=== PATIENT | male | born 1960 | race Caucasian/White ===

== ENCOUNTER 2020-07-07 12:16 | Emergency (ER) | payer BC ==
--- OUTSIDE RECORDS SUMMARY | 2020-07-07 12:19 | XMS REPORT | Continuity of Care Document ---
:1960 Author Organization [facility] t Address 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 Family History Family Member Diagnosis Comments Start Date Stop Date Source Sibling Family history of [facility] [place] malignant neoplasm of Phy sicians urinary bladder Sibling Family history of [facility] [place] valvular heart Physicians disease Mother Family history of [facility] [place] congestive heart Physicia ns failure Father Family history of [facility] [place] colon cancer Physicians Social History Smoking Status Start Date Stop Date Source Never smoker [facility] Physicians Medications Ordered Filled Start Stop Current Ordering Indication Dosage Frequency Signature Comments Components Source Medication Medication Date Date Medication? Clinician (SIG) Name Name Lisinopril Lisinopril Yes Uni vers TABS TABS ity of [place] [facility] ans Pravastatin Pravastatin Yes U nivers Sodium TABS Sodium TABS i ty of [place] [facility] ans Aspirin Aspirin Yes Univers TABS TABS ity of [place] Physici ans Rizatriptan Rizatriptan Yes U nivers Benzoate Benzoate ity of TABS TABS [place] [facility] Ciprofloxac Ciprofloxac Yes U nivers in 500 MG in 500 MG ity o f TABS TABS [place] [facility] Dexilant 60 Dexilant 60 Yes U nivers MG Oral MG Oral ity of Capsule Capsule [place] Delayed Delayed Physici Release Release ans Vital Signs Vital Name Observation Time Observation Value Comments Source BP Systolic 2017-10-15 130 mm[Hg] Location: [facility] 10:46:00 Position: [place] [facility] Sitting BP Diastolic 2017-10-15 98 mm[Hg] Location: [facility] 10:46:00 Position: [place] [facility] Sitting Height 2017-10-15 70 [in_us] [facility] 10:46:00 [place] [facility] Weight 2017-10-15 195 [lb_av] [facility] 10:46:00 [place] [facility] Body Mass Index 2017-10-15 27.98 kg/m2 University o f Calculated 10:46:00 [place] [facility] Heart Rate 2017-10-15 74 /min Quality: [facility] 10:46:00 Regular [place] [facility] s Procedures Procedure Date / Time Performed Performing Clinician Luke valenzuela History of kidney [facility] surgery Physicians History of sinus [facility] ex surgery Physicians Encounters Start End Encounter Admission Attending Care Care Encounter Source Date/Time Date/Time Type Type Clinicians Facility Department ID 2017-10-15 2017-10-15 KATARINA Haines [facility] [id number] Univers 09:45:00 09:45:00 t; Luis Armando REY Ortho [facility] i ty [facility] Jose REY M.D. Medical Physi ci [place] ans 2017-08-27 2017-08-27 KATARINA Haines [facility] [id number] Univers 10:30:00 10:30:00 t; Luis Armando REY ity Jose Ryder M.D. Physi ci ans Results This patient has no known results.
[2020-07-07] MEDS ORDERED: LIDOCAINE 1% MPF 5 ML VIAL ONE (13:01)
[2020-07-07] MEDS ORDERED: HYDROCODONE/APAP 5/325 MG TAB ONE (13:02)
[2020-07-07] MEDS ORDERED: TETANUS & DIPHTHERIA TOX,ADULT 0.5 ML VIAL ONE (13:02)
--- NOTE | 2020-07-07 13:05 | RAD REPORT ---
EXAM DESCRIPTION: RAD - Hand Right 3 View - 07/07/2020 1:00 pm CLINICAL HISTORY: Right hand pain status post injury FINDINGS: No fracture or dislocation is seen. Soft tissue laceration
--- NOTE | 2020-07-07 13:41 | EDPHYS ---
Physician Documentation [facility] Name: Jamal De La Cruz Age: 59 yrs Sex: Male : 1960 Arrival Date: 07/07/2020 Time: 12:17 Bed 8 Private MD: ED Physician Jonh Byrd HPI: 07/07 12:28 This 59 yrs old Male presents to ER via Ambulatory with complaints of pm1 Laceration To Hand, Finger Injury. 12:28 The patient has a laceration related to: doing carpentry, from a power saw, occurred at pm1 home. The laceration(s) is(are) located on the right hand. Onset: The symptoms/episode began/occurred just prior to arrival. Associated signs and symptoms: Pertinent negatives: deformity, dizziness, numbness distal to injury, suspected foreign body. The patient has not experienced similar symptoms in the past. Cutting with skilsaw and reached underneath it with his right hand. Laceration present to right 2nd and 3rd finger. Historical: - Allergies: 12:31 No Known Allergies; bp - Home Meds: 12:31 Lisinopril Oral [Active]; pravastatin oral oral [Active]; aspirin 81 mg Oral TbEC 1 tab bp once daily [Active]; - PMHx: 12:31 Hypertension; High Cholesterol; bp - Immunization history:: Last tetanus immunization: < 10 years ago. - Social history:: Smoking status: Patient denies any tobacco usage or history of. ROS: 12:28 Constitutional: Negative for fever, chills, and weight loss, Cardiovascular: Negative pm1 for chest pain, palpitations, and edema, Respiratory: Negative for shortness of breath, cough, wheezing, and pleuritic chest pain, Abdomen/GI: Negative for abdominal pain, nausea, vomiting, diarrhea, and constipation, Back: Negative for injury and pain, MS/Extremity: Negative for injury and deformity. 12:28 Neuro: Negative for headache, weakness, numbness, tingling, and seizure. 12:28 Skin: Positive for laceration(s), of the dorsal aspect of proximal phalanx of right index finger and dorsal aspect of proximal phalanx of right middle finger. Exam: 12:28 Constitutional: This is a well developed, well nourished patient who is awake, alert, pm1 and in no acute distress. Head/Face: Normocephalic, atraumatic. 12:28 MS/ Extremity: Pulses equal, no cyanosis. Neurovascular intact. Full, normal range of motion. 12:28 Cardiovascular: Exam negative for acute changes, Rate: normal, Rhythm: regular, Pulses: no pulse deficits are appreciated. 12:28 Respiratory: Exam negative for acute changes, respiratory distress, shortness of breath. 12:28 Skin: Appearance: normal except for affected area, injury, laceration(s), the wound is approximately 3 cm(s), of the dorsal aspect of proximal phalanx of right middle finger and dorsal aspect of proximal phalanx of right index finger, that can be described as no foreign body, irregular. 12:28 Neuro: Exam negative for acute changes, Orientation: is normal, Mentation: is normal, Motor: is normal, moves all fours, Sensation: is normal, no obvious gross deficits. Vital Signs: 12:27 Weight 88.45 kg; Height 5 ft. 9 in. (175.26 cm); bp 12:58 BP 98 / 66; Pulse 70; Resp 16; Temp 98; Pulse Ox 97% ; bp 14:25 BP 118 / 57; Pulse 63; Resp 17; Temp 98; Pulse Ox 98% ; bp 12:27 Body Mass Index 28.80 (88.45 kg, 175.26 cm) bp Laceration: 13:38 Wound Repair of 3cm ( 1.2in ) subcutaneous laceration to dorsal aspect of proximal pm1 phalanx of right index finger and dorsal aspect of proximal phalanx of right middle finger. Irregularly shaped.. Distal neuro/vascular/tendon intact. Anesthesia: Local anesthetic administered with 3 mls of 1% lidocaine. Wound prep: Extensive cleansing with betadine with hibiclenz by hi, Wound irrigation with saline by hi, Wound explored extensively, Copious irrigation. Skin closed with 10 4-0 Prolene using simple sutures and sterile technique. Dressed with Neosporin, 4x4's, non-adherent dressing, finger splint. Patient tolerated well. MDM: 12:23 Patient medically screened. pm1 13:39 Data reviewed: vital signs. Data interpreted: Pulse oximetry: on room air is 97 %. pm1 Interpretation: normal. Counseling: I had a detailed discussion with the patient and/or guardian regarding: the historical points, exam findings, and any diagnostic results supporting the discharge/admit diagnosis, radiology results, the need for outpatient follow up, suture removal in 10-14 days, to return to the emergency department if symptoms worsen or persist or if there are any questions or concerns that arise at home. 07/07 12:26 Order name: Hand Right 3 View XRAY; Complete Time: 13:43 pm1 07/07 12:26 Order name: Wound Care; Complete Time: 12:58 pm1 07/07 12:27 Order name: Prolene, Sutures; Complete Time: 12:58 pm1 07/07 12:27 Order name: Dressing - Wound; Complete Time: 12:58 pm1 07/07 12:27 Order name: Gloves, Sterile; Complete Time: 12:58 pm1 07/07 12:27 Order name: Setup Suture Tray; Complete Time: 12:58 pm1 07/07 13:38 Order name: Splint - Finger; Complete Time: 14:06 pm1 Administered Medications: 12:45 Drug: Tetanus-Diphtheria Toxoid Adult 0.5 ml {Ripsaw Operator: [employer]. Exp: bp 01/04/2023. Lot #: [id number]. } Route: IM; Site: left deltoid; 14:07 Follow up: Response: No adverse reaction bp 12:45 Drug: Palmer 5 mg-325 mg 1 tabs Route: PO; bp 14:07 Follow up: Response: Pain is decreased bp 12:45 Drug: Lidocaine (1 %) 5 ml Volume: 5 ml; Route: Infiltration; bp Disposition: 07/08 12:02 Co-signature as Attending Physician, Jonh Byrd MD I agree with the assessment and jonny plan of care. Disposition: 07/07/20 13:41 Discharged to Home. Impression: Laceration with foreign body of right index finger without damage to nail, Laceration with foreign body of right middle finger without damage to nail. - Condition is Stable. - Discharge Instructions: Cast or Splint Care, Adult, Laceration Care, Adult. - Prescriptions for Keflex 500 mg Oral Capsule - take 1 capsule by ORAL route every 8 hours for 10 days; 30 capsule. - Medication Reconciliation Form, Thank You Letter, Antibiotic Education, Prescription Opioid Use form. - Follow up: Emergency Department; When: As needed; Reason: Worsening of condition. Follow up: Private Physician; When: 10 - 14 days; Reason: Wound Recheck, Recheck today's complaints, Continuance of care, Staple/Suture removal, Re-evaluation by your physician. - Problem is new. - Symptoms have improved. Signatures: Dispatcher [employer] EDMS Jonh Byrd, Eloy De La Torre MD, cha, MOTION PICTURE PRINTER MOTION PICTURE PRINTER pm1 Kwesi Argueta, RN RN bp Corrections: (The following items were deleted from the chart) 07/07 14:28 13:41 07/07/2020 13:41 Discharged to Home. Impression: Laceration with foreign body of bp right index finger without damage to nail; Laceration with foreign body of right middle finger without damage to nail. Condition is Stable. Forms are Medication Reconciliation Form, Thank You Letter, Antibiotic Education, Prescription Opioid Use. Follow up: Emergency Department; When: As needed; Reason: Worsening of condition. Follow up: Private Physician; When: 10 - 14 days; Reason: Wound Recheck, Recheck today's complaints, Continuance of care, Staple/Suture removal, Re-evaluation by your physician. Problem is new. Symptoms have improved. pm1
--- NOTE | 2020-07-07 13:41 | ER ---
Nurse's Notes [facility] Name: Jamal De La Cruz Age: 59 yrs Sex: Male : 1960 Arrival Date: 07/07/2020 Time: 12:17 Bed 8 Private MD: Diagnosis: Laceration with foreign body of right index finger without damage to nail;Laceration with foreign body of right middle finger without damage to nail Presentation: 07/07 12:27 Chief complaint: Patient states: R FIRST FINGER LACERATION 2/2 SKILL SAW. Coronavirus bp screen: At this time, the client does not indicate any symptoms associated with coronavirus-19. Ebola Screen: No symptoms or risks identified at this time. Complicating Factors: There are no complicating factors for this patient. Initial Sepsis Screen: Does the patient meet any 2 criteria? No. Patient's initial sepsis screen is negative. Does the patient have a suspected source of infection? No. Patient's initial sepsis screen is negative. Risk Assessment: Do you want to hurt yourself or someone else? Patient reports no desire to harm self or others. Onset of symptoms was July 07, 2020 at 12:00. 12:27 Method Of Arrival: Ambulatory bp 12:27 Acuity: KING 3 bp Triage Assessment: 12:31 General: Appears in no apparent distress. uncomfortable, Behavior is cooperative, bp appropriate for age, anxious. Pain: Complains of pain in right hand. EENT: No deficits noted. Neuro: No deficits noted. Cardiovascular: No deficits noted. Respiratory: No deficits noted. GI: No signs and/or symptoms were reported involving the gastrointestinal system. : No signs and/or symptoms were reported regarding the genitourinary system. Derm: No deficits noted. Musculoskeletal: No deficits noted. Injury Description: Laceration sustained to right hand is 0.5 to 2.5 cm long, is bleeding no active bleeding noted. Historical: - Allergies: 12:31 No Known Allergies; bp - Home Meds: 12:31 Lisinopril Oral [Active]; pravastatin oral oral [Active]; aspirin 81 mg Oral TbEC 1 tab bp once daily [Active]; - PMHx: 12:31 Hypertension; High Cholesterol; bp - Immunization history:: Last tetanus immunization: < 10 years ago. - Social history:: Smoking status: Patient denies any tobacco usage or history of. Screenin:30 Abuse screen: Denies threats or abuse. Denies injuries from another. Nutritional bp screening: No deficits noted. Tuberculosis screening: No symptoms or risk factors identified. Fall Risk None identified. Assessment: 12:34 General: SEE TRIAGE NOTE. bp 14:26 Reassessment: PT D/C HOME AMBULATORY, DX WITH LACERATION OF R INDEX FINGER. bp Vital Signs: 12:27 Weight 88.45 kg; Height 5 ft. 9 in. (175.26 cm); bp 12:58 BP 98 / 66; Pulse 70; Resp 16; Temp 98; Pulse Ox 97% ; bp 14:25 BP 118 / 57; Pulse 63; Resp 17; Temp 98; Pulse Ox 98% ; bp 12:27 Body Mass Index 28.80 (88.45 kg, 175.26 cm) bp ED Course: 12:17 Patient arrived in ED. ag5 12:21 Kwesi Argueta, CINDY is Primary Nurse. bp 12:23 Eloy Crespo NP is PHCP. pm1 12:23 Jonh Byrd MD is Attending Physician. pm1 12:28 Triage completed. bp 12:30 Patient has correct armband on for positive identification. Bed in low position. Call bp light in reach. Side rails up X2. 12:31 Arm band placed on. bp 13:00 Hand Right 3 View XRAY In Process Unspecified. EDMS 13:30 Assist provider with laceration repair on right hand that was between 2.6 to 7.5 cm bp using sutures. Set up tray. Performed by Eloy Crespo REINFORCING STEEL MACHINE OPERATOR Dressed with Neosporin, Patient tolerated well. 14:27 Patient did not have IV access during this emergency room visit. bp Administered Medications: 12:45 Drug: Tetanus-Diphtheria Toxoid Adult 0.5 ml {Bicycle Designer: [employer]. Exp: bp 01/04/2023. Lot #: [id number]. } Route: IM; Site: left deltoid; 14:07 Follow up: Response: No adverse reaction bp 12:45 Drug: Boomer 5 mg-325 mg 1 tabs Route: PO; bp 14:07 Follow up: Response: Pain is decreased bp 12:45 Drug: Lidocaine (1 %) 5 ml Volume: 5 ml; Route: Infiltration; bp Outcome: 13:41 Discharge ordered by . pm1 14:27 Discharged to home ambulatory. bp 14:27 Condition: stable 14:27 Discharge instructions given to patient, Instructed on discharge instructions, follow up and referral plans. medication usage, wound care, Demonstrated understanding of instructions, follow-up care, medications, wound care, Prescriptions given X 1. 14:28 Patient left the ED. bp Signatures: Dispatcher [employer] EDEloy Dhaliwal NP REINFORCING STEEL MACHINE OPERATOR pm1 Kwesi Argueta, CINDY RN bp Nargis Guevara ag5
== END 2020-07-07 14:28 | disposition home or self-care (01) ==
LOC: ER 12:16
PROC: 0JQJ0ZZ Repair Right Hand Subcutaneous Tissue and Fascia, Open Approach (ICD-10-PCS; principal; 2020-07-07)
DX: S61.212A Laceration without foreign body of right middle finger without damage to nail, initial encounter (principal); W29.8XXA Contact with other powered hand tools and household machinery, initial encounter; Y93.89 Activity, other specified; Y92.9 Unspecified place or not applicable; Z23 Encounter for immunization; Z79.82 Long term (current) use of aspirin; I10 Essential (primary) hypertension; E78.00 Pure hypercholesterolemia, unspecified
CPT/HCPCS: 90471; 90714; 99284

== ENCOUNTER 2020-07-21 07:55 | Emergency (ER) | payer BC ==
--- OUTSIDE RECORDS SUMMARY | 2020-07-21 07:58 | XMS REPORT | Continuity of Care Document ---
:1960 Author Organization [facility] t Address [address] [place] [address] Care Team Providers Name Role Phone GEORGE [...] Sibling Family history of [facility] [place] valvular heart Physicians disease Mother Family history of [facility] [place] congestive heart Physicia ns failure Father Family history of [facility] [place] colon cancer Physicians Social History Smoking Status Start Date Stop Date Source Never smoker [facility] Physicians Medications Ordered Filled Start Stop Current Ordering Indication Dosage Frequency Signature Comments Components Source Medication Medication Date Date Medication? Clinician (SIG) Name Name Lisinopril Lisinopril Yes Uni vers TABS TABS ity of [place] Physici ans Pravastatin Pravastatin Yes U nivers Sodium TABS Sodium TABS i ty of [place] Physici ans Aspirin Aspirin Yes Univers TABS TABS [facility]y of [place] Physici ans Rizatriptan Rizatriptan Yes U nivers [...] Source BP Systolic 2017-10-15 130 mm[Hg] Location: [facility] 10:46:00 Position: [place] Physician s Sitting BP Diastolic 2017-10-15 98 mm[Hg] Location: [facility] 10:46:00 Position: [place] [facility]ician s Sitting Height 2017-10-15 70 [in_us] [facility] 10:46:00 [place] [facility] Weight 2017-10-15 195 [lb_av] [facility] 10:46:00 [place] [facility] s Body Mass Index 2017-10-15 27.98 kg/m2 University o f Calculated 10:46:00 [place] [facility] Heart Rate 2017-10-15 74 /min Quality: [facility] 10:46:00 Regular [place] Physician s Procedures Procedure Date / Time Performed Performing Clinician Luke valenzuela History of kidney [facility] surgery Physicians History of sinus [facility] ex surgery Physicians Encounters Start End Encounter Admission Attending Care Care Encounter Source Date/Time Date/Time Type Type Clinicians Facility Department ID 2017-10-15 2017-10-15 KATARINA Haines [facility] [id number] Univers 09:45:00 09:45:00 t; Luis Armando REY Ortho and i ty brett [facility] Spine S Jose REY M.D. Medical Physi ci [place] ans 2017-08-27 2017-08-27 KATARINA Haines [facility] [id number] Univers 10:30:00 10:30:00 t; Luis Armando REY ity Jose Ryder M.D. Physi ci ans Results This patient has no known results.
--- NOTE | 2020-07-21 08:19 | EDPHYS ---
Physician Documentation [facility] Name: Jamal De La Cruz Age: 59 yrs Sex: Male : 1960 Arrival Date: 07/21/2020 Time: 07:56 Bed 19 Private MD: ED Physician Artur Mancini HPI: 07/21 08:25 This 59 yrs old Male presents to ER via Ambulatory with complaints of Suture snw Removal. 08:25 The patient has sutures on the dorsal aspect of proximal phalanx of right middle finger snw and dorsal aspect of proximal phalanx of right index finger. Previous treatment: The patient was initially treated 14 day(s) ago, the care was rendered at [facility], Treatment type: The patient's original treatment included irrigation, sutures. Sutures/russell progress: The patient has no c/o's. The wound is well-healing with no redness, swelling, discharge, or dehiscence reported. The patient has not experienced similar symptoms in the past. It is unknown whether or not the patient has recently seen a physician. Historical: - Allergies: 08:08 No Known Allergies; aa5 - Home Meds: 08:07 aspirin 81 mg Oral TbEC 1 tab once daily [Active]; lisinopril Oral [Active]; aa5 pravastatin Oral [Active]; - PMHx: 08:07 High Cholesterol; Hypertension; aa5 ROS: 08:19 Constitutional: Negative for fever, chills, and weight loss, Eyes: Negative for injury, snw pain, redness, and discharge, ENT: Negative for injury, pain, and discharge, Neck: Negative for injury, pain, and swelling, Cardiovascular: Negative for chest pain, palpitations, and edema, Respiratory: Negative for shortness of breath, cough, wheezing, and pleuritic chest pain, Abdomen/GI: Negative for abdominal pain, nausea, vomiting, diarrhea, and constipation, Back: Negative for injury and pain, : Negative for injury, bleeding, discharge, and swelling, MS/Extremity: Negative for injury and deformity, Neuro: Negative for headache, weakness, numbness, tingling, and seizure, Psych: Negative for depression, anxiety, suicide ideation, homicidal ideation, and hallucinations. 08:19 Skin: Positive for laceration(s), of the dorsal aspect of proximal phalanx of right index finger and dorsal aspect of proximal phalanx of right middle finger, wound edges to index and middle fingers well approximated, no bleeding, no exudate. Exam: 08:19 Constitutional: This is a well developed, well nourished patient who is awake, alert, snw and in no acute distress. Head/Face: Normocephalic, atraumatic. Eyes: Pupils equal round and reactive to light, extra-ocular motions intact. Lids and lashes normal. Conjunctiva and sclera are non-icteric and not injected. Cornea within normal limits. Periorbital areas with no swelling, redness, or edema. ENT: Nares patent. No nasal discharge, no septal abnormalities noted. Tympanic membranes are normal and external auditory canals are clear. Oropharynx with no redness, swelling, or masses, exudates, or evidence of obstruction, uvula midline. Mucous membranes moist. Neck: Trachea midline, no thyromegaly or masses palpated, and no cervical lymphadenopathy. Supple, full range of motion without nuchal rigidity, or vertebral point tenderness. No Meningismus. Chest/axilla: Normal chest wall appearance and motion. Nontender with no deformity. No lesions are appreciated. Cardiovascular: Regular rate and rhythm with a normal S1 and S2. No gallops, murmurs, or rubs. Normal PMI, no JVD. No pulse deficits. Respiratory: Lungs have equal breath sounds bilaterally, clear to auscultation and percussion. No rales, rhonchi or wheezes noted. No increased work of breathing, no retractions or nasal flaring. Abdomen/GI: Soft, non-tender, with normal bowel sounds. No distension or tympany. No guarding or rebound. No evidence of tenderness throughout. Back: No spinal tenderness. No costovertebral tenderness. Full range of motion. MS/ Extremity: Pulses equal, no cyanosis. Neurovascular intact. Full, normal range of motion. Neuro: Awake and alert, GCS 15, oriented to person, place, time, and situation. Cranial nerves II-XII grossly intact. Motor strength 5/5 in all extremities. Sensory grossly intact. Cerebellar exam normal. Normal gait. Psych: Awake, alert, with orientation to person, place and time. Behavior, mood, and affect are within normal limits. 08:19 Skin: Appearance: normal except for affected area, injury, laceration(s), index and middle finger repaired laceration without bleeding, exudate, erythema, sutures removed without difficulty, both fingers with tightness on flexion, encouraged ROM exercises. Vital Signs: 08:00 BP 124 / 84; Pulse 66; Resp 16 S; Temp 97.0(TE); Pulse Ox 100% on R/A; aa5 MDM: 08:18 Patient medically screened. snw 08:19 Data reviewed: vital signs, nurses notes. Data interpreted: Pulse oximetry: on room air snw is 100 %. Interpretation: normal. Counseling: I had a detailed discussion with the patient and/or guardian regarding: the historical points, exam findings, and any diagnostic results supporting the discharge/admit diagnosis, the need for outpatient follow up, to return to the emergency department if symptoms worsen or persist or if there are any questions or concerns that arise at home. Special discussion: Based on the history and exam findings, there is no indication for further emergent testing or inpatient evaluation. I discussed with the patient/guardian the need to see the primary care provider for further evaluation of the symptoms. Administered Medications: No medications were administered Disposition: : Co-signature as Attending Physician, Artur Mancini MD. ma2 Disposition: 07/21/20 08:18 Discharged to Home. Impression: Encounter for removal of sutures. - Condition is Stable. - Discharge Instructions: Stitches, Russell, or Adhesive Wound Closure, Suture Removal, Care After, Wound Care. - Medication Reconciliation Form, Thank You Letter, Antibiotic Education, Prescription Opioid Use form. - Follow up: Emergency Department; When: As needed; Reason: Worsening of condition. Follow up: Private Physician; When: As needed; Reason: Recheck today's complaints, Continuance of care, Re-evaluation by your physician. Signatures: Khushi Clemons, ROTARY PUMP OPERATOR-C ROTARY PUMP OPERATOR-Csnw Cassi Rachel RN RN aa5 Artur Mancini MD MD ma2 Corrections: (The following items were deleted from the chart) 08:38 08:18 07/21/2020 08:18 Discharged to Home. Impression: Encounter for removal of aa5 sutures. Condition is Stable. Forms are Medication Reconciliation Form, Thank You Letter, Antibiotic Education, Prescription Opioid Use. Follow up: Emergency Department; When: As needed; Reason: Worsening of condition. Follow up: Private Physician; When: As needed; Reason: Recheck today's complaints, Continuance of care, Re-evaluation by your physician. snw
--- NOTE | 2020-07-21 08:19 | ER ---
Nurse's Notes [facility] Name: Jamal De La Cruz Age: 59 yrs Sex: Male : 1960 Arrival Date: 07/21/2020 Time: 07:56 Bed 19 Private MD: Diagnosis: Encounter for removal of sutures Presentation: 07/21 08:00 Chief complaint: Patient states: need for suture removal. Pt reports getting sutures on aa5 July 07, sutures noted to right index and middle fingers. 08:00 Coronavirus screen: Client denies travel out of the [place] in the last 14 days. At this aa5 time, the client does not indicate any symptoms associated with coronavirus-19. Ebola Screen: Patient negative for fever greater than or equal to 101.5 degrees Fahrenheit, and additional compatible Ebola Virus Disease symptoms. Initial Sepsis Screen: Does the patient meet any 2 criteria? No. Patient's initial sepsis screen is negative. Does the patient have a suspected source of infection? No. Patient's initial sepsis screen is negative. Risk Assessment: Do you want to hurt yourself or someone else? Patient reports no desire to harm self or others. Onset of symptoms was 2019. 08:00 Acuity: KING 4 aa5 08:00 Method Of Arrival: Ambulatory aa5 Historical: - Allergies: 08:08 No Known Allergies; aa5 - Home Meds: 08:07 aspirin 81 mg Oral TbEC 1 tab once daily [Active]; lisinopril Oral [Active]; aa5 pravastatin Oral [Active]; - PMHx: 08:07 High Cholesterol; Hypertension; aa5 Screenin:00 Abuse screen: Denies threats or abuse. Nutritional screening: No deficits noted. aa5 Tuberculosis screening: No symptoms or risk factors identified. Fall Risk None identified. Assessment: 08:00 General: Appears comfortable, Behavior is calm, cooperative. Pain: Denies pain. Neuro: aa5 Level of Consciousness is awake, alert, obeys commands, Oriented to person, place, time, situation. Cardiovascular: Patient's skin is warm and dry. Respiratory: Airway is patent Respiratory effort is even, unlabored, Respiratory pattern is regular, symmetrical. GI: No signs and/or symptoms were reported involving the gastrointestinal system. : No signs and/or symptoms were reported regarding the genitourinary system. EENT: No signs and/or symptoms were reported regarding the EENT system. Derm: Skin is pink, warm \T\ dry. Sutures noted to right index and right middle fingers, no s/s of infection noted. Musculoskeletal: Range of motion: intact in all extremities. 08:10 Reassessment: sutures being removed by REGISTERED PRIVATE DUTY NURSE . aa5 08:20 Reassessment: Right index and right middle fingers dressed with band-aids. . aa5 08:35 Reassessment: Patient is alert, oriented x 3, equal unlabored respirations, skin aa5 warm/dry/pink. Vital Signs: 08:00 BP 124 / 84; Pulse 66; Resp 16 S; Temp 97.0(TE); Pulse Ox 100% on R/A; aa5 ED Course: 07:56 Patient arrived in ED. as 07:59 Khushi Clemons FNP-C is PHCP. snw 07:59 Artur Mancini MD is Attending Physician. snw 08:00 Arm band placed on. aa5 08:00 Patient has correct armband on for positive identification. aa5 08:06 Triage completed. aa5 08:35 No provider procedures requiring assistance completed. Patient did not have IV access aa5 during this emergency room visit. 08:36 Wound care: to CLEANING OF LACERATION WOUND AFTER REMOVAL OF STITCHES . located on mh5 dorsal aspect of proximal phalanx of right middle finger and dorsal aspect of proximal phalanx of right ring finger was cleaned with Hibiclens, dressed with Neosporin, band aid. 08:37 Cassi Rachel, RN is Primary Nurse. aa5 08:41 Pulse ox on. NIBP on. mh5 Administered Medications: No medications were administered Outcome: 08:18 Discharge ordered by . snw 08:35 Discharged to home ambulatory. aa5 08:35 Condition: good 08:35 Discharge instructions given to patient, Instructed on discharge instructions, follow up and referral plans. Demonstrated understanding of instructions, follow-up care. 08:38 Patient left the ED. aa5 Signatures: Khushi Clemons FNP-C WINDOW TRIMMER-Csnw Edna Olvera Audri, RN RN aa5 Amanda Olvera [facility]
[2020-07-22 10:10] VITALS: BP 124/84; TEMP 97; O2SAT 100
== END 2020-07-21 08:38 | disposition home or self-care (01) ==
LOC: ER 07:55
DX: Z48.02 Encounter for removal of sutures (principal)
CPT/HCPCS: 99283